=== PATIENT | female | born 1935 | race Hispanic/Latino ===

== ENCOUNTER 2018-10-06 06:12 | Day surgery (SDC) | payer OTHER ==
--- NOTE | 2018-09-30 10:25 | RAD REPORT ---
EXAM DESCRIPTION: RAD - Chest Pa And Lat (2 Views) - 09/30/2018 10:06 am CLINICAL HISTORY: preop Chest pain. 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 The heart is moderately enla rged in size. No displaced fractures. IMPRESSION: Prominent COPD.
[2018-09-30 10:42] LABS: Absolute Lymphocytes (CBC) 1.2 K/uL (0.7-4.9); Absolute Monocytes 0.5 K/uL (0.1-1.3); Absolute Neutrophil 3.3 K/uL (1.8-8.0); Basophils % 0.9 % (0-1.3); Eosinophils % 2.1 % (0-4.4); Lymphocytes % 23.4 % (15.3-44.8); MPV 9.4 fL (7.6-11.3); Monocytes % 9.8 % (3.3-12.3); RBC Red Blood Cell Count 4.11 M/uL (3.86-4.86)
[2018-09-30 10:50] LABS: Protime INR 3.01
[2018-09-30 11:36] LABS: Potassium 4.2 mmol/L (3.5-5.1)
--- NOTE | 2018-09-30 18:06 | EKG ---
Test Date: 2018-09-30 Test Time: 10:09:31 Commission Auditor: CHRIS MEASUREMENT RESULTS: Intervals: Rate: 80 [place]: QRSD: 80 QT: 360 QTc: 415 [place]: P: [place]: QRS: 57 T: 30 INTERPRETIVE STATEMENTS: Atrial fibrillation Abnormal ECG Compared to ECG 08/13/2017 01:13:59 Myocardial infarct finding no longer present Electronically Signed On 09-30-18 18:04:57 CADET DECK by Sudeep Boles
[2018-10-06] MEDS ORDERED: HEPA 1000U/500MLS 1,000 UNIT/500 ML BAG IV ONE ×2 (06:57→07:37)
[2018-10-06] MEDS ORDERED: LIDOCAINE 1% MPF 30 ML VIAL ONE (06:57)
[2018-10-06] MEDS ORDERED: NA CHLORIDE 0.9% 500 ML ONE (07:02)
[2018-10-06] MEDS ORDERED: MIDAZOLAM HCL 2 MG/2 ML INJ ONE (07:38)
[2018-10-06] MEDS ORDERED: METHYLPREDNISOLONE 125 MG INJ ONE (07:38)
[2018-10-06] MEDS ORDERED: FENTANYL CITR 100 MCG/2 ML ONE (07:38)
[2018-10-06] MEDS ORDERED: ATROPINE SULF 1 MG/10 ML SYR IV ONE (07:38)
[2018-10-06] MEDS ORDERED: NA CHLORIDE 0.9% 0 ML ONE (07:39)
--- NOTE | 2018-10-06 09:22 | OP ---
Surgeon: Sudeep Boles MD Key Punch Operator: hTomas Patel Total conscious sedation was 30 minutes. The patient was [facility] as an outpatient. The procedure that was performed wa s left heart catheterization, selective coronary arteriogram and left ventriculogram. Indication: New-onset atrial fibrillation, new-onset congestive heart failure and unstable angina sy mptoms. The patient is allergic to steroid. She was given 125 mg of Solu-Medrol IV. She was given 2 mg of Versed IV sedation. 6-Persian sheath and catheters were used to do the catheterization. 6-Fr ench sheath was introduced in the right common femoral artery. Angio-Seal was used to close the case . Angiography there was normal. 6-Persian catheters, left Caroline and right Caroline were used to do the left main and right main injections respectively. She was found to have diffuse distal disease i n the RCA. She was very left dominant. She had ectasia and diffuse plaquing throughout. Her ejecti on fraction, however, was 55% to 60%. Left ventricular end-diastolic pressure was 7 mmHg. She was n oted to be in atrial fibrillation and was rate controlled. There were no complications. Blood Loss: 5 cc. Postoperative Diagnoses: Mild coronary artery disease, atrial fibrillation. Plan: To continue medical regimen. She will resume her Coumadin tomorrow. TASH/PAOLA Voice ID: [id number] Report ID: [id number]
[2018-10-06 10:37] VITALS: BP 130/59; TEMP 98; O2SAT 94
== END 2018-10-06 10:15 | disposition home or self-care (01) ==
LOC: CCL 06:12
DX: I25.10 Atherosclerotic heart disease of native coronary artery without angina pectoris (principal); I48.91 Unspecified atrial fibrillation; I35.1 Nonrheumatic aortic (valve) insufficiency; I07.1 Rheumatic tricuspid insufficiency; I27.20 Pulmonary hypertension, unspecified; J44.9 Chronic obstructive pulmonary disease, unspecified; I10 Essential (primary) hypertension; E78.5 Hyperlipidemia, unspecified; E78.6 Lipoprotein deficiency; R06.09 Other forms of dyspnea; Z79.01 Long term (current) use of anticoagulants; Z79.899 Other long term (current) drug therapy
CPT/HCPCS: 36415; 71046; 80048; 85025; 85610; 85730; 93005; 93458; C1760; C1893; J2250; J2930; J3010; J0583